=== PATIENT | female | born 1995 | race Caucasian/White ===

== ENCOUNTER 2020-11-01 20:18 | Emergency (ER) | payer OTHER ==
[~2020-11-01] VITALS: Ht 167.6 cm; Wt 48.1 kg
[2020-11-01 21:35] LABS: BASO % 0.5 % (0.0-1.0); HEMATOCRIT 38.1 % (37.0-47.0); LYMPH # 0.5 10*3/uL (1.3-4.4); LYMPH % 10.9 % (27.0-41.0); MEAN CELL VOLUME 82.6 fl (81.0-99.0); MEAN CORPUSCULAR HGB 26.7 pg (27.0-31.0); MEAN CORPUSCULAR HGB CONC 32.3 g/dl (33.0-37.0); MEAN PLATELET VOLUME 9.9 fl (9.6-12.3); MONO # 0.8 10*3/uL (0.1-1.0); NEUT # 3.1 10*3/uL (2.3-7.9); NEUT % 71.4 % (47.0-73.0); PLATELET COUNT AUTOMATED 267 10*3/uL (130-400); RED BLOOD COUNT 4.61 10*6/uL (4.10-5.10); RED CELL DISTRI WIDTH 12.7 % (0-14.5); WHITE BLOOD COUNT 4.4 10*3/uL (4.8-10.8)
[2020-11-01 21:50] LABS: BILIRUBIN Negative (Negative); BLOOD Negative (Negative); CLARITY Clear (Clear); COLOR Yellow (Yellow); GLUCOSE Negative (Negative); KETONE 2+ (Negative); LEUKO ESTERASE Trace (Negative); NITRITE Negative (Negative); PH 5.5 (4.5-8.0); SPECIFIC GRAVITY >= 1.030 (1.001-1.030)
[2020-11-01 21:52] LABS: ALKALINE PHOSPHATASE 61 U/L (45-117); BUN 12 mg/dl (7-24); CHLORIDE 107 mmol/L (98-107); CREATININE 0.84 mg/dL (0.55-1.02); POTASSIUM 4.1 mmol/L (3.5-5.1); SGOT/AST 19 IU/L (3-35); SGPT/ALT 41 U/L (12-78); SODIUM 137 mmol/L (136-145); TOTAL PROTEIN 7.4 gm/dL (6.4-8.2)
[2020-11-01 22:14] LABS: BACTERIA 1+; MUCOUS 3+
[2020-11-01] MEDS ORDERED: PREDNISONE20 M1 PO (23:14)
[2020-11-01] MEDS ORDERED: PROVENTIL HFA6.7 GM INH (23:14)
== END 2020-11-01 23:30 | disposition home or self-care (01) ==
LOC: ED 20:18
PROVIDERS: Physician Assistant
DX: U07.1 COVID-19 (principal); Z91.030 Bee allergy status

== ENCOUNTER 2020-11-03 20:18 | Emergency (ER) | payer OTHER ==
[~2020-11-03] VITALS: Wt 47.6 kg
[~2020-11-03 20:18] MED LIST: PREDNISONE20 M1 PO; PROVENTIL HFA6.7 GM INH
[2020-11-03] MEDS ORDERED: ZOFRAN4 MG PO (22:49)
[2020-11-03] MEDS ORDERED: OMEPRAZOLE40 MG PO (22:49)
== END 2020-11-03 21:09 | disposition home or self-care (01) ==
LOC: ED 20:18
DX: U07.1 COVID-19 (principal); Z91.030 Bee allergy status; Z79.899 Other long term (current) drug therapy